=== PATIENT | male | born 1955 | race Caucasian/White ===

== ENCOUNTER 2019-06-27 08:18 | Emergency (ER) | payer MEDICAID ==
[~2019-06-27] VITALS: Ht 167.6 cm; Wt 88.9 kg
[2019-06-27 08:19] VITALS: BP 148/95
--- NOTE | 2019-06-27 08:31 | NUR ---
PATIENT AMBULATED TO BED 3 AT THIS TIME.
--- NOTE | 2019-06-27 08:35 | NUR ---
BIB SELF. AAO X4 C/O PAINFUL URINATION AND BLADDER URGENCY X 2 DAYS. PT STATES PRESSURE UPON URINATING AND FEELS THE URGENCY TO STILL URINATE. PT DENIES FEVER, N/V/D, HEMATURIA. PT WAS DISCHARGE FROM [facility] LAST NIGHT FOR DIVERTICULITIS AND POSSIBLE PROSTATE. PT WAS PRESCRIBED LEVOFLOXACIN 500 MG, METRODINAZOLE 500 MG, TAMSULOSIN 0.4 MG. PT STATES HE HASN'T TAKEN PRESCRIBED MEDS. PT STATES THAT WHEN HE URINATED LAST NIGHT HE HEARD A "POPPING SOUND" AND FOUND STONES IN THE URINE AND COLLECTED IT. ER TO EVALUATE PT.
--- NOTE | 2019-06-27 09:25 | NUR ---
DR LAWSON AT BEDSIDE FOR PT EVALUATION
--- NOTE | 2019-06-27 10:00 | NUR ---
STUDENT NURSE FROM [facility] INSERTED ENCARNACION CATHETER 16 FR/10ML USING STERILE TECHNIQUE WITH INSTRUCTOR AT BEDSIDE. YELLOW URINE OUTPUT OF 1200 ML NOTED VIA GRAVITY. PT TOLERATED WELL.
[2019-06-27 10:18] LABS: BASOPHILS % (AUTO) 0.2 % (0.0-2.0); EOSINOPHILS % (AUTO) 0.2 % (0.0-4.0); HEMATOCRIT 36.2 % (36-52); HEMOGLOBIN 12.1 g/dL (12.0-18.0); LYMPHOCYTES # (AUTO) 0.9 K/uL (2.0-11.5); LYMPHOCYTES % (AUTO) 12.6 % (20.5-51.1); MEAN CORPUSCULAR HEMOGLOBIN 29 pg (27-31); MEAN CORPUSCULAR HGB CONC 34 g/dL (33-37); MONOCYTES # (AUTO) 0.6 K/uL (0.8-1.0); MONOCYTES % (AUTO) 8.1 % (1.7-9.3); NEUTROPHILS # (AUTO) 5.7 K/uL (1.8-7.7); NEUTROPHILS % (AUTO) 78.9 % (42.2-75.2); PLATELET COUNT (AUTO) 281 K/uL (140-450); RED BLOOD CELL COUNT(AUTO) 4.16 MIL/uL (4.20-6.10); RED CELL DISTRIBUTION WIDTH 13.8 % (11.6-13.7); WHITE BLOOD COUNT (AUTO) 7.3 K/uL (4.8-10.8)
[2019-06-27 10:25] LABS: APPEARANCE,URINE CLEAR (CLEAR); BILIRUBIN,URINE NEGATIVE (NEGATIVE); COLOR,URINE YELLOW (YELLOW); LEUKOCYTE ESTERASE ,URINE NEGATIVE (NEGATIVE); NITRITE, URINE NEGATIVE (NEGATIVE); UGLUCOSE NEGATIVE (NEGATIVE)
[2019-06-27 10:29] LABS: ANION GAP 13.9 (8-16); CARBON DIOXIDE 26.7 mmol/L (21-32); POTASSIUM 3.6 mmol/L (3.5-5.1)
[2019-06-27 10:33] LABS: BLOOD, URINE 1+ (NEGATIVE)
[2019-06-27 10:45] LABS: ALBUMIN 3.2 g/dL (3.4-5.0); TOTAL BILIRUBIN 0.5 mg/dL (0.0-1.0)
[2019-06-27 10:50] LABS: RBC,URINE 0-5 /HPF (0-5); WBC,URINE 0-5 /HPF (0-5)
--- NOTE | 2019-06-27 11:18 | NUR ---
EMPTIED URINE FROM ENCARNACION BAG. URINE 1500 ML YELLOW OUTPUT NOTED.
[2019-06-27 11:26] VITALS: BP 138/86
--- NOTE | 2019-06-27 11:26 | NUR ---
Patient discharged with v/s stable. Written and verbal after care instructions given and explained. Patient verbalized understanding. Ambulatory with steady gait. All questions addressed prior to discharge. Advised to follow up with PMD.
== END 2019-06-27 11:26 | disposition home or self-care (01) ==
LOC: MED 08:18
DX: R33.9 Retention of urine, unspecified (principal); I10 Essential (primary) hypertension
CPT/HCPCS: 36415; 51702; 80053; 81001; 85025; 87086; 99284

== ENCOUNTER 2020-04-03 19:37 | Emergency (ER) | payer MEDICAID ==
[~2020-04-03] VITALS: Ht 165.1 cm; Wt 87.5 kg
[2020-04-03 19:44] VITALS: BP 158/96
--- NOTE | 2020-04-03 19:45 | NUR ---
PT AMBULATED TO BED 7 WITH STEADY GAIT.
--- NOTE | 2020-04-03 20:10 | NUR ---
PT ASSESS, TREATED, AND D/C BY MELIA TREADWELL. NO NURSING INTERVENTION NEEDED.
[2020-04-03 20:15] VITALS: BP 158/96
== END 2020-04-03 20:15 | disposition home or self-care (01) ==
LOC: MED 19:37
DX: L98.9 Disorder of the skin and subcutaneous tissue, unspecified (principal)
CPT/HCPCS: 99282